=== PATIENT | male | born 1975 | race African-American/Black ===

== ENCOUNTER 2024-07-13 14:08 | Emergency (ER) | payer MEDICAID, OTHER ==
[~2024-07-13] VITALS: Ht 182.9 cm; Wt 100.0 kg
[2024-07-13 14:11] VITALS: O2SAT 98
[2024-07-13 15:23] LABS: BASOPHILS % 0.7 % (0.0-2.0); EOSINOPHILS % 0.4 % (0.0-5.0); HEMATOCRIT. 52.8 % (42.0-52.0); HEMOGLOBIN. 17.6 g/dL (14.0-18.0); LYMPHOCYTES % 19.9 % (20.0-50.0); MEAN CORPUSCULAR HEMOGLOBIN 30.1 pg (28.0-32.0); MEAN CORPUSCULAR HGB CONC 33.3 g/dL (31.0-37.0); MEAN CORPUSCULAR VOLUME 90.5 fL (80.0-94.0); MEAN PLATELET VOLUME 9.2 fl (7.4-10.4); PLATELET 225 x1000/uL (130-400); RED BLOOD CELL COUNT 5.84 mill/uL (4.7-6.1); RED CELL DISTRIBUTION WIDTH 12.5 % (11.6-14.6); WHITE BLOOD COUNT 11.9 x1000/uL (4.5-11.0)
[2024-07-13] MEDS: SODIUM CHLORIDE 0.9% 500 ML IV ONE (15:23)
[2024-07-13 15:25] LABS: DIFFERENTIAL COMMENT 1
[2024-07-13 15:27] LABS: CLARITY URINE CLEAR (CLEAR); COLOR URINE YELLOW (YELLOW); GLUCOSE URINE NEGATIVE (NEGATIVE); KETONES URINE TRACE (NEGATIVE); LEUKOCYTE ESTERASE URINE NEGATIVE (NEGATIVE); NITRITE URINE NEGATIVE (NEGATIVE); OCCULT BLOOD URINE NEGATIVE (NEGATIVE); PH URINE 5.5 (4.5-8.0); PROTEIN URINE TRACE (NEGATIVE); SPECIFIC GRAVITY URINE 1.009 (1.005-1.030); UROBILINOGEN URINE 0.2 E.U./dL (0.2-1.0)
[2024-07-13 15:30] LABS: CHLORIDE 103 mEq/L (98-107); POTASSIUM 3.1 mEq/L (3.5-5.1); SODIUM 137 mEq/L (136-145)
[2024-07-13 15:31] LABS: CALCIUM 9.6 mg/dL (8.7-10.4); CARBON DIOXIDE 24 mEq/L (21-32)
[2024-07-13 15:34] LABS: D-DIMER < 0.19 mg/L FEU (<0.50); PARTIAL THROMBOPLASTIN TIME 26.6 sec (23.4-31.0); PROTHROMBIN TIME 11.3 sec (9.6-11.0)
[2024-07-13 15:36] LABS: CREATININE 1.2 mg/dL (0.6-1.3); GLUCOSE 95 mg/dL (70-105); UREA NITROGEN BLOOD 10 mg/dL (9-23)
[2024-07-13 15:41] LABS: BACTERIA URINE FEW; RBC URINE NONE SEEN /hpf (0-2); SQUAMOUS EPITHELIAL CELL URINE RARE /lpf (RARE/1+); WBC URINE 0-2 /hpf (0-2); YEAST URINE NONE SEEN
[2024-07-13 15:45] LABS: *AMPHETAMINES SCREEN URINE NEGATIVE (NEGATIVE); *BARBITURATES SCREEN URINE NEGATIVE (NEGATIVE); *BENZODIAZEPINES SCREEN URINE NEGATIVE (NEGATIVE); *COCAINE SCREEN URINE NEGATIVE (NEGATIVE); METHADONE URINE SCREEN NEGATIVE (NEGATIVE)
[2024-07-13 15:46] LABS: CANNABINOID URINE SCREEN NEGATIVE (NEGATIVE); ECSTASY MDMA SCREEN URINE NEGATIVE (NEGATIVE); OPIATES URINE SCREEN NEGATIVE (NEGATIVE); PHENCYCLIDINE URINE SCREEN NEGATIVE (NEGATIVE)
[2024-07-13 15:48] LABS: TROPONIN I HIGH SENSITIVITY < 4 ng/L (3.0-53)
[2024-07-13] MEDS: METHOCARBAMOL 750MG TABLET PO SCH (16:28)
[2024-07-13] MEDS: HYDROCODONE/ACETAMINOPHEN 5/325MG TABLET PO ONE (16:28)
[2024-07-13] MEDS: MAGNESIUM OXIDE 400MG TABLET PO SCH (16:28)
[2024-07-13] MEDS: POTASSIUM CHLORIDE 20MEQ TABLET SR PO ONE (16:28)
[2024-07-13] MEDS: LABETALOL 5MG/ML 4ML INJ IV ONE (16:29)
[2024-07-13] MEDS: HYDRALAZINE 20MG/ML VIAL IV ONE (18:04)
[2024-07-13 19:30] LABS: TROPONIN I HIGH SENSITIVITY 5 ng/L (3.0-53)
[2024-07-13 19:34] VITALS: TEMP 36.55848
[2024-07-13] MEDS ORDERED: HYDR25TA MT (21:34)
[2024-07-13] MEDS: KETOROLAC 30MG/ML VIAL IV ONE (21:48)
[2024-07-13] MEDS: HYDROCHLOROTHIAZIDE 25MG TABLET PO STA (21:48)
[2024-07-13 21:59] VITALS: BP 156/120; PULSE 114; RESP 11; O2SAT 96
[2024-07-14] MEDS ORDERED: IOHEXOL-350 100 ML BOTTLE ONE (00:03)
== END 2024-07-13 22:10 | disposition left against medical advice (07) ==
LOC: ER 14:19
DX: I16.0 Hypertensive urgency (principal); R00.0 Tachycardia, unspecified; M54.6 Pain in thoracic spine; I10 Essential (primary) hypertension; Z79.899 Other long term (current) drug therapy
CPT/HCPCS: 80305; 80048; 81003; 83880; 83690; 85025; 85379; 85610; 85730; 84484; 36415; 74174; 71045; 71275; 93005; 96361; 96374; 96375; 99285; Q9967; J0360; J1885; J3490; J7040; Z7610